=== PATIENT | female | born 1940 | race Caucasian/White ===

== ENCOUNTER 2017-07-16 09:54 | Outpatient (CLI) | payer MEDICARE ==
--- NOTE | 2017-07-16 10:48 | RAD ---
TWO VIEWS CHEST: Comparison: 06-26-13 from [facility] History: Dyspnea. Coughing up blood. FINDINGS: Two views of the chest shows normal sized cardiomediastinal silhouette. There is an opacity in the l eft lung base obscuring the left hemidiaphragm. Hyperexpansion of the lungs is seen consistent with COPD. IMPRESSION: 1. Left lower lobe pneumonia. Alternatively, this could represent atelectasis. 2. COPD. POS: [facility]
== END 2017-07-16 09:55 | disposition home or self-care (01) ==
LOC: RAD 09:54
PROVIDERS: ATTEND Internal Medicine Critical Care Medicine
DX: R06.00 Dyspnea, unspecified (principal); J18.9 Pneumonia, unspecified organism; J44.9 Chronic obstructive pulmonary disease, unspecified
CPT/HCPCS: 71020

== ENCOUNTER 2017-09-17 10:30 | Outpatient (CLI) | payer MEDICARE | END 2017-09-17 10:31 | disposition home or self-care (01) | LOC: BICMAMMO 10:30 | PROVIDERS: ATTEND Internal Medicine | DX: Z12.31 Encounter for screening mammogram for malignant neoplasm of breast (principal); Z80.3 Family history of malignant neoplasm of breast | CPT/HCPCS: 77063; G0202; 77067 ==

== ENCOUNTER 2017-11-12 13:03 | Outpatient (CLI) | payer MEDICARE | END 2017-11-12 13:04 | disposition home or self-care (01) | LOC: RAD 13:03 | PROVIDERS: ATTEND Internal Medicine Critical Care Medicine | DX: R06.00 Dyspnea, unspecified (principal) | CPT/HCPCS: 71046 ==

== ENCOUNTER 2018-01-28 14:31 | Outpatient (CLI) | payer MEDICARE | END 2018-01-28 14:32 | disposition home or self-care (01) | LOC: BICMAMMO 14:31 | PROVIDERS: ATTEND Internal Medicine | DX: M81.0 Age-related osteoporosis without current pathological fracture (principal); M85.88 Other specified disorders of bone density and structure, other site | CPT/HCPCS: 77080 ==

== ENCOUNTER 2018-04-01 12:21 | Emergency (ER) | payer MEDICARE ==
[~2018-04-01 12:21] MED LIST: ISOVUE-370 76%-LOCM 1 ML ONE
[2018-04-01 13:09] LABS: #Eosinphils 0.1 thou/uL (0.0-0.7); #Lymphocytes 1.2 thou/uL (1.20-3.40); #Monocytes 0.2 thou/uL (0.11-0.59); #Neutrophils 6.3 thou/uL (1.40-6.50); %Basophils 0.3 % (0.0-1.0); %Eosinophils 0.6 % (0.0-10.0); %Lymphocytes 15.3 % (21.0-51.0); %Neutrophils 80.7 % (42.0-75.0); Hemoglobin 15.4 g/dL (12.0-16.0); Mean Corpuscular HGB CONC 32.8 g/dL (32.0-36.0); Mean Corpuscular Hemoglobin 29.8 pg (27.0-31.0); Mean Corpuscular Volume 90.9 fL (78.0-98.0); Mean Platelet Volume 7.8 fL (7.4-10.4); Platelet Count 204 thou/uL (130-400); RBC Distribution Width 13.6 % (11.5-14.5); Red Blood Cell (RBC) Count 5.18 mill/uL (4.20-5.40); White Blood Cell (WBC) Count 7.7 thou/uL (4.8-10.8)
[2018-04-01] MEDS ORDERED: Promethazine HCl 25 MG/ML VIAL ONE (13:09)
[2018-04-01 13:29] LABS: ALT (SGPT) 17 U/L (8-55); AST (SGOT) 30 U/L (5-34); Albumin 4.1 g/dL (3.4-4.8); Alkaline Phosphatase 91 U/L (40-150); Anion Gap 13 mmol/L (10-20); BUN (Urea Nitrogen) 17 mg/dL (9.8-20.1); Bilirubin, Total 0.9 mg/dL (0.2-1.2); Calc. Creatinine Clearance 0 mL/min (70-130); Calcium 9.7 mg/dL (7.8-10.44); Carbon Dioxide 23 mmol/L (23-31); Chloride 103 mmol/L (98-107); Estimated GFR-MDRD 59; Globulin 4.6 g/dL (2.4-3.5); Glucose 95 mg/dL (83-110); Lipase 37 U/L (8-78); Potassium 4.2 mmol/L (3.5-5.1); Protein, Total 8.7 g/dL (6.0-8.3); Sodium 135 mmol/L (136-145)
--- NOTE | 2018-04-01 13:29 | RAD ---
TWO VIEWS ABDOMEN AND UPRIGHT VIEW OF THE CHEST: COMPARISON: chest x-ray from 11/12/17 from [facility] HISTORY: Abdominal pain. History of bowel obstruction in the past. FINDINGS: Supine and upright views of the abdomen and upright view of the chest show a nonspecific, nonobstruct ed bowel gas pattern. Air is seen throughout the colon to the level of the rectum. A small amount o f stool is seen in the rectum. Anastomotic staple lines are seen in the pelvis from prior bowel surg [place]. No free air or air fluid levels are seen on upright examination. There is hyperexpansion of the lungs consistent with COPD. There is a 1.1 cm nodule projecting over the right upper lobe. This was not seen on the prior chest x-ray from 11/12/17 from [facility]. The patient has bilateral breast implants with nipple shadows projecting symmetrically ov er both sides of the chest. IMPRESSION: 1. No evidence of bowel obstruction. 2. Right upper lobe nodule. This was not seen on prior chest x-ray. A CT of the chest is recommend ed for further evaluation. POS: [facility]
--- NOTE | 2018-04-01 15:05 | CT ---
CT ABDOMEN AND PELVIS WITH IV CONTRAST: HISTORY: Inability to pass stool. Abdominal pain. Nausea. FINDINGS: Absence of oral contrast reduces the sensitivity of the exam for evaluation of bowel. The lung bases are clear. No free air, free fluid, or lymphadenopathy is seen in the abdomen or pelv is. The patient is post appendectomy and hysterectomy. No calcified gallstones are seen. The liver, spleen, pancreas, adrenal glands, and right kidney are normal. Small, low density lesions in the left kidney are likely cysts. There are vascular calcifications without evidence of aneurysmal dilatation of the abdominal aorta. There are degenerative changes present in the spine. A small hiatal hernia is present. There is sig moid diverticulosis. There is mild pericolonic inflammatory change in the left lower quadrant. The small bowel loops are not abnormally dilated. There is fecal material predominantly in the transvers e colon. IMPRESSION: 1. Small hiatal hernia. 2. Left renal cyst. 3. Sigmoid diverticulosis. 4. Probable diverticulitis in the left lower quadrant. 5. No evidence of high grade small bowel obstruction. POS: [facility]
[2018-04-01] MEDS ORDERED: metroNIDAZOLE 500 MG/100 ML BAG ONE (15:39)
== END 2018-04-01 19:00 | disposition home or self-care (01) ==
LOC: ERS 12:21
DX: K57.32 Diverticulitis of large intestine without perforation or abscess without bleeding (principal); K57.30 Diverticulosis of large intestine without perforation or abscess without bleeding; E78.5 Hyperlipidemia, unspecified; J44.9 Chronic obstructive pulmonary disease, unspecified; Z79.899 Other long term (current) drug therapy
CPT/HCPCS: 74022; 74177; 80053; 83690; 85025; 96361; 96365; 96366; 96367; 96375; J1956; J2270; J2550

== ENCOUNTER 2018-08-28 12:52 | Outpatient (CLI) | payer MEDICARE ==
--- NOTE | 2018-08-28 14:15 | RAD ---
TWO VIEWS OF THE CHEST: Comparison: 07-16-17 History: COPD. Dyspnea FINDINGS: Two views of the chest shows hyperexpansion of the lungs consistent with COPD. Patient has bilateral breast implants. Nodular opacity projecting over the right chest wall is stable and likely represents a nipple shadow. No consolidation or pleural effusion are seen. IMPRESSION: 1. No evidence of acute cardiopulmonary disease. 2. COPD. POS: [facility]
== END 2018-08-28 12:53 | disposition home or self-care (01) ==
LOC: RAD 12:52
PROVIDERS: ATTEND Internal Medicine Critical Care Medicine
DX: R06.00 Dyspnea, unspecified (principal); J44.9 Chronic obstructive pulmonary disease, unspecified
CPT/HCPCS: 71046

== ENCOUNTER 2019-02-06 14:47 | Outpatient (CLI) | payer MEDICARE ==
--- NOTE | 2019-02-06 15:38 | MMO ---
Bilateral MAMMO Bilat Screen [facility]. CLINICAL HISTORY: Patient is 78 years old and is seen for screening. The patient has the following family history of breast cancer: maternal aunt, at age 54. The patient has no personal history of cancer. The patient has a history of bilateral Implants in 2006 - benign, bilateral Implants in 1979 - benign and left Excisional Biopsy in at age 18 - benign. VIEWS: The views performed were: bilateral craniocaudal; bilateral mediolateral oblique; and bilateral Implant displaced with tomosynthesis. FILMS COMPARED: The present examination has been compared to prior imaging studies performed at [facility] on 08/18/2015, 09/11/2016 and 09/17/2017, and at [facility] on 11/04/2006 and 03/22/2008. MAMMOGRAM FINDINGS: There are scattered fibroglandular densities. There are stable calcified implants seen in both breasts. There are no suspicious masses, suspicious calcifications, or new areas of architectural distortion. IMPRESSION: THERE IS NO MAMMOGRAPHIC EVIDENCE OF MALIGNANCY. A ROUTINE FOLLOW-UP MAMMOGRAM IN 1 YEAR IS RECOMMENDED. THE RESULTS OF THIS EXAM WERE SENT TO THE PATIENT. ACR BI-RADS Category 2 - Benign finding MAMMOGRAPHY NOTE: 1. A negative mammogram report should not delay a biopsy if a dominant of clinically suspicious mass is present. 2. Approximately 10% to 15% of breast cancers are not detected by mammography. 3. Adenosis and dense breasts may obscure an underlying neoplasm.
== END 2019-02-06 14:48 | disposition home or self-care (01) ==
LOC: BICMAMMO 14:47
PROVIDERS: ATTEND Internal Medicine
DX: Z12.31 Encounter for screening mammogram for malignant neoplasm of breast (principal); Z85.3 Personal history of malignant neoplasm of breast
CPT/HCPCS: 77063; 77067

== ENCOUNTER 2019-03-03 10:20 | Outpatient (CLI) | payer MEDICARE ==
--- NOTE | 2019-03-03 11:05 | BD ---
EXAM: DEXA bone density examination HISTORY: Osteoporosis screening COMPARISON: January 28, 2018 and September 11, 2016 FINDINGS: L1--bone mineral density 0.758 g/sq cm; T score -2.1. Z score 0.1 L2--bone mineral density 0.837 g/sq cm; T score -1.7; Z score 0.8 L3--bone mineral density 0.876 g/sq cm; T score -1.9; Z score 0.7 L4--bone mineral density 0.951 g/sq cm; T score -1.0, Z score 1.7 Total L1-L4--bone mineral density 0.869 g/sq cm; T score -1.6, Z score 0.9 Left femoral neck--bone mineral density0.61; T score -2.1, Z score 0.1 Total proximal left femur--bone mineral density 0.746; T score -1.6, Z score 0.3 IMPRESSION: Based on the WHO criteria, the patient's bone mineral density is consideredOsteopenic. T he patient is at moderate risk for fracture. The patient's bone mineral density is stable to the most recent comparison dated January 28, 2018.
== END 2019-03-03 10:21 | disposition home or self-care (01) ==
LOC: BICMAMMO 10:20
PROVIDERS: ATTEND Internal Medicine Rheumatology
DX: M81.0 Age-related osteoporosis without current pathological fracture (principal)
CPT/HCPCS: 77080

== ENCOUNTER 2019-09-10 13:22 | Outpatient (CLI) | payer MEDICARE ==
--- NOTE | 2019-09-10 15:21 | MRI ---
MRI BRAIN AND INTERNAL AUDITORY CANALS WITH AND WITHOUT CONTRAST: 09/10/2019 HISTORY: A 78-year-old female. The history provided in the requisition is H53.2, diplopia. However, upon spe aking with Dr. Souza (and also because of the patient's statement to the registered radiologic technologist), there is g reater concern for dizziness than the diplopia. Therefore an IAC protocol was performed rather than a n orbits protocol. TECHNIQUE: Multiple sequences obtained in axial, sagittal, and coronal planes; both whole brain images and thin slices through the IAC's, pre and post IV injection of gadolinium-based contrast agent: MultiHance 11 mL. FINDINGS: The ventricles are normal in size and configuration. There is no restricted diffusion, abnormal intr aaxial enhancement, mass, midline shift or any other mass effect, recent intraaxial hemorrhage, or ex traaxial fluid collection. There are multiple small focal T2 hyperintensities in the cerebral white m atter consistent with mild chronic ischemic white matter changes due to mild microvascular atheroscle rosis. Similar such tiny lesions are also present in the dana, which are consistent with mild chronic ischemic white matter changes and/or tiny old lacunar infarctions. There is no abnormal enhancement, mass, or morphologic abnormality, involving the cerebellopontine an gles, 7th-8th nerve complexes, internal auditory canals, cochleae, vestibules, vestibular aqueducts, or semicircular canals. IMPRESSION: 1. Mild chronic ischemic white matter changes, in the dana and cerebrum. 2. Otherwise negative. jnr POS: [facility]
== END 2019-09-10 13:23 | disposition home or self-care (01) ==
LOC: BICMRI 13:22
PROVIDERS: ATTEND Student in an Organized Health Care Education/Training Program
DX: H53.2 Diplopia (principal)
CPT/HCPCS: 70553; 82565

== ENCOUNTER 2020-03-08 14:17 | Outpatient (CLI) | payer MEDICARE ==
--- NOTE | 2020-03-08 14:53 | MMO ---
Bilateral MAMMO Bilat Screen [facility]. CLINICAL HISTORY: Patient is 79 years old and is seen for screening. The patient has the following family history of breast cancer: maternal aunt, at age 54. The patient has no personal history of cancer. The patient has a history of bilateral Implants in 2006 - benign, bilateral Implants in 1979 - benign and left Excisional Biopsy in at age 18 - benign. VIEWS: The views performed were: bilateral craniocaudal; bilateral craniocaudal with tomosynthesis; bilateral mediolateral oblique; bilateral mediolateral oblique with tomosynthesis; and bilateral Implant displaced with tomosynthesis. FILMS COMPARED: The present examination has been compared to prior imaging studies performed at [facility] on 08/18/2015, 09/11/2016, 09/17/2017 and 02/06/2019. This study has been interpreted with the assistance of computer-aided detection. MAMMOGRAM FINDINGS: There are scattered fibroglandular densities. There are stable benign appearing calcifications seen in both breasts. There are also vascular calcifications. There are no suspicious masses, suspicious calcifications, or new areas of architectural distortion. IMPRESSION: THERE IS NO MAMMOGRAPHIC EVIDENCE OF MALIGNANCY. A ROUTINE FOLLOW-UP MAMMOGRAM IN 1 YEAR IS RECOMMENDED. THE RESULTS OF THIS EXAM WERE SENT TO THE PATIENT. ACR BI-RADS Category 2 - Benign finding MAMMOGRAPHY NOTE: 1. A negative mammogram report should not delay a biopsy if a dominant of clinically suspicious mass is present. 2. Approximately 10% to 15% of breast cancers are not detected by mammography. 3. Adenosis and dense breasts may obscure an underlying neoplasm. Reported by: MARIA A ELISE MD Electonically Signed: [id number]
--- NOTE | 2020-03-08 18:42 | BD ---
Exam: DEXA Bone Density 03/08/20 HISTORY: Osteoporosis. Postmenopausal. FINDINGS: Lumbar Spine: BMD (g/cm2) T-SCORE L1 0.700 -2.6 L2 0.786 -2.2 L3 0.864 -2.0 L4 0.932 -1.2 L1-L4 0.837 -1.9 Evidence for osteopenia with increased risk for fracture. Bone mineral density has decreased approxim ately 4% from the prior 03/03/19 study. Left hip Femoral Neck: 0.619 -2.1 Total Femur: 0.778 -1.3 Evidence for osteopenia with increased risk for fracture. Bone mineral density has increased approxim ately 45 from the prior study. FRAX score: Major osteoporotic fracture: 18%. Hip fracture: 5.9%. POS: [facility]
== END 2020-03-08 14:18 | disposition home or self-care (01) ==
LOC: BICMAMMO 14:17
PROVIDERS: ATTEND Internal Medicine
DX: Z12.31 Encounter for screening mammogram for malignant neoplasm of breast (principal); Z13.820 Encounter for screening for osteoporosis; N95.8 Other specified menopausal and perimenopausal disorders; M81.0 Age-related osteoporosis without current pathological fracture; M85.852 Other specified disorders of bone density and structure, left thigh; Z98.82 Breast implant status; Z91.89 Other specified personal risk factors, not elsewhere classified; Z80.3 Family history of malignant neoplasm of breast
CPT/HCPCS: 77063; 77067; 77080

== ENCOUNTER 2020-03-21 08:33 | Outpatient (CLI) | payer MEDICARE ==
--- NOTE | 2020-03-21 08:52 | ULT ---
ULTRASOUND RETROPERITONEUM LIMITED: (ABDOMINAL AORTA) DATE: 03/21/2020 HISTORY: 79-year-old female for abdominal aortic aneurysm screening study FINDINGS: The caliber of the entire abdominal aorta is within normal limits. There is extensive atherosclerotic plaque throughout. IMPRESSION: 1. No abdominal aortic aneurysm. 2. Atherosclerosis of abdominal aorta
== END 2020-03-21 08:34 | disposition home or self-care (01) ==
LOC: BICULT 08:33
PROVIDERS: ATTEND Internal Medicine
DX: Z13.6 Encounter for screening for cardiovascular disorders (principal); I70.0 Atherosclerosis of aorta
CPT/HCPCS: 76775

== ENCOUNTER 2020-12-05 23:43 | Inpatient (IN) | payer MEDICARE ==
[~2020-12-05 23:43] MED LIST changes: -ISOVUE-370 76%-LOCM 1 ML ONE; +Iopamidol-370 76% 500 ML 1 ML ONE
[2020-12-06] MEDS ORDERED: Ondansetron PF 4 MG/2 ML Vial ONE ×2 (00:02→09:25)
[2020-12-06] MEDS ORDERED: Morphine 4 MG/ML VIAL ONE (00:02)
[2020-12-06 00:20] LABS: #Eosinphils 0.1 thou/uL (0.0-0.7); #Lymphocytes 1.4 thou/uL (1.20-3.40); #Monocytes 0.4 thou/uL (0.11-0.59); #Neutrophils 3.5 thou/uL (1.40-6.50); %Basophils 0.7 % (0.0-1.0); %Eosinophils 1.4 % (0.0-10.0); %Lymphocytes 26.1 % (21.0-51.0); %Monocytes 8.1 % (0.0-10.0); %Neutrophils 63.7 % (42.0-75.0); Hemoglobin 13.6 g/dL (12.0-16.0); Mean Corpuscular HGB CONC 32.6 g/dL (32.0-36.0); Mean Corpuscular Hemoglobin 29.9 pg (27.0-31.0); Mean Corpuscular Volume 91.8 fL (78.0-98.0); Mean Platelet Volume 7.6 fL (7.4-10.4); Platelet Count 229 thou/uL (130-400); RBC Distribution Width 13.2 % (11.5-14.5); Red Blood Cell (RBC) Count 4.54 mill/uL (4.20-5.40); White Blood Cell (WBC) Count 5.4 thou/uL (4.8-10.8)
[2020-12-06 00:34] LABS: ALT (SGPT) 14 U/L (8-55); AST (SGOT) 18 U/L (5-34); Albumin 3.9 g/dL (3.4-4.8); Alkaline Phosphatase 64 U/L (40-110); Anion Gap 13 mmol/L (10-20); BUN (Urea Nitrogen) 14 mg/dL (9.8-20.1); Bilirubin, Total 0.3 mg/dL (0.2-1.2); Calc. Creatinine Clearance 0 mL/min (70-130); Calcium 9.3 mg/dL (7.8-10.44); Carbon Dioxide 25 mmol/L (23-31); Chloride 101 mmol/L (98-107); Globulin 5.6 g/dL (2.4-3.5); Glucose 97 mg/dL (83-110); Lipase 92 U/L (8-78); Potassium 4.3 mmol/L (3.5-5.1); Protein, Total 9.5 g/dL (5.8-8.1); Sodium 135 mmol/L (136-145)
[2020-12-06] MEDS ORDERED: Morphine 4 MG/ML VIAL SLOW IVP PRN ×2 (02:49→06:59)
[2020-12-06] MEDS ORDERED: Ondansetron PF 4 MG/2 ML Vial IVP PRN ×2 (03:00→13:35)
[2020-12-06] MEDS ORDERED: Ondansetron ODT 4 MG TAB SL PRN (03:00)
[2020-12-06 03:29] VITALS: BMI 23.4
[2020-12-06] MEDS: Sodium Chloride 0.9% 1,000 ML IV SCH ×2 (03:35→11:26)
[2020-12-06] MEDS ORDERED: Succinylcholine 200 MG/10 ml SYRINGE FS ONE (09:25)
[2020-12-06] MEDS ORDERED: Rocuronium Bromide 10 MG/ML (10ML VIAL) ONE (09:25)
[2020-12-06] MEDS ORDERED: Esmolol 100 MG/10 ML VIAL ONE (09:25)
[2020-12-06] MEDS ORDERED: ePHEDrine 50 MG/ML VIAL ONE (09:25)
[2020-12-06] MEDS ORDERED: PHENYLEPHRINE-NS 100 MCG/ML 10 ML SYRINGE ONE (09:25)
[2020-12-06] MEDS ORDERED: Glycopyrrolate 0.2 MG/ML 5 ML SYRINGE ONE (09:25)
[2020-12-06] MEDS ORDERED: Dexamethasone 20 MG/5 ML VIAL ONE (09:25)
[2020-12-06] MEDS ORDERED: PROPOFOL 200 MG/20 ML VIAL ONE (09:25)
[2020-12-06] MEDS ORDERED: Lidocaine 1% PF 5 ML VIAL ONE (09:25)
[2020-12-06] MEDS ORDERED: Fentanyl 100 MCG/2 ML VIAL ONE ×3 (11:09→13:55)
[2020-12-06] MEDS ORDERED: cefOXitin Sodium/Dextrose 2 GM/50 ML BAG ONE (11:31)
[2020-12-06 11:39] LABS: SARS-CoV-2 PCR by NAA Not Detected (NotDetected)
[2020-12-06] MEDS ORDERED: Promethazine HCl 25 MG/ML VIAL SLOW IVP PRN (13:12)
[2020-12-06] MEDS ORDERED: Promethazine HCl 25 MG/ML VIAL IM PRN ×3 (13:12→13:44)
[2020-12-06] MEDS ORDERED: Ondansetron HCl/PF 4 MG/2 ML Vial IVP PRN (13:12)
[2020-12-06] MEDS ORDERED: hydrALAZINE 20 MG/ML VIAL SLOW IVP PRN (13:35)
[2020-12-06] MEDS ORDERED: diphenhydrAMINE 50 MG/ML VIAL IM PRN (13:44)
[2020-12-06] MEDS ORDERED: diphenhydrAMINE 25 MG CAP PO PRN (13:44)
[2020-12-06] MEDS ORDERED: Naloxone HCl 0.4 mg/ml Vial IV PRN (13:44)
[2020-12-06] MEDS ORDERED: diphenhydrAMINE 50 MG/ML VIAL IVP PRN (13:44)
[2020-12-06] MEDS ORDERED: Zolpidem Tartrate 5 MG TAB PO PRN (13:44)
[2020-12-06] MEDS ORDERED: fentaNYL Citrate/PF 2,000 MCG in Sodium Chloride 0.9% 60 ML IV PRN (13:44)
[2020-12-06] MEDS ORDERED: Communication Order-Pharmacy FS SCH (13:45)
[2020-12-06] MEDS ORDERED: Promethazine HCl 25 MG/ML VIAL ONE (13:59)
[2020-12-06] MEDS: D5 1/2 NS w/20 mEq KCL 1,000 ML IV SCH (17:49)
[2020-12-06] MEDS: Famotidine 20 MG TAB PO SCH (19:45)
[2020-12-06] MEDS: cefOXitin Sodium/Dextrose,Iso 1 GM in Premix Bag 1 BAG IVPB SCH (20:41)
[2020-12-06] MEDS: Enoxaparin Sodium 40 MG/0.4 ML SYRINGE SC SCH (20:41)
[2020-12-06] MEDS: Famotidine/PF 20 mg/2ml Vial SLOW IVP SCH (20:42)
[2020-12-07] MEDS: D5 1/2 NS w/20 mEq KCL 1,000 ML IV SCH ×3 (03:09→14:02)
[2020-12-07] MEDS: cefOXitin Sodium/Dextrose,Iso 1 GM in Premix Bag 1 BAG IVPB SCH (03:10)
[2020-12-07 05:55] LABS: #Lymphocytes 0.7 thou/uL (1.20-3.40); #Monocytes 0.8 thou/uL (0.11-0.59); #Neutrophils 9.5 thou/uL (1.40-6.50); %Lymphocytes 6.4 % (21.0-51.0); %Monocytes 7.1 % (0.0-10.0); %Neutrophils 86.4 % (42.0-75.0); Hemoglobin 12.9 g/dL (12.0-16.0); Mean Corpuscular HGB CONC 32.2 g/dL (32.0-36.0); Mean Corpuscular Hemoglobin 29.8 pg (27.0-31.0); Mean Corpuscular Volume 92.7 fL (78.0-98.0); Mean Platelet Volume 7.8 fL (7.4-10.4); Platelet Count 191 thou/uL (130-400); RBC Distribution Width 13.1 % (11.5-14.5); Red Blood Cell (RBC) Count 4.34 mill/uL (4.20-5.40)
[2020-12-07 06:20] LABS: Anion Gap 12 mmol/L (10-20); BUN (Urea Nitrogen) 7 mg/dL (9.8-20.1); Calc. Creatinine Clearance 54 mL/min (70-130); Carbon Dioxide 20 mmol/L (23-31); Chloride 103 mmol/L (98-107); Glucose 149 mg/dL (83-110); Potassium 4.3 mmol/L (3.5-5.1); Sodium 131 mmol/L (136-145)
[2020-12-07] MEDS: Famotidine 20 MG TAB PO SCH ×2 (07:25→20:59)
[2020-12-07] MEDS: Acetaminophen 325 MG TAB PO SCH ×3 (09:32→21:28)
[2020-12-07] MEDS: Famotidine/PF 20 mg/2ml Vial SLOW IVP SCH ×2 (09:33→20:59)
[2020-12-07] MEDS: Enoxaparin Sodium 40 MG/0.4 ML SYRINGE SC SCH (20:59)
[2020-12-08] MEDS: D5 1/2 NS w/20 mEq KCL 1,000 ML IV SCH (02:35)
[2020-12-08] MEDS: Acetaminophen 325 MG TAB PO SCH ×4 (04:47→21:45)
[2020-12-08] MEDS: Famotidine/PF 20 mg/2ml Vial SLOW IVP SCH ×2 (08:11→20:22)
[2020-12-08] MEDS: Famotidine 20 MG TAB PO SCH ×2 (08:13→20:22)
[2020-12-08] MEDS ORDERED: D5 1/2 NS w/20 mEq KCL 1,000 ML IV SCH ×2 (08:49→20:30)
[2020-12-08] MEDS: Enoxaparin Sodium 40 MG/0.4 ML SYRINGE SC SCH (20:21)
[2020-12-09] MEDS: Acetaminophen 325 MG TAB PO SCH (04:21)
[2020-12-09] MEDS: Famotidine 20 MG TAB PO SCH ×2 (08:30→20:36)
[2020-12-09] MEDS: Famotidine/PF 20 mg/2ml Vial SLOW IVP SCH ×2 (08:31→20:42)
[2020-12-09] MEDS: Fentanyl 100 MCG/2 ML VIAL SLOW IVP PRN ×2 (15:49→19:53)
[2020-12-09] MEDS: Ondansetron PF 4 MG/2 ML Vial IVP PRN (19:53)
[2020-12-09] MEDS: Enoxaparin Sodium 40 MG/0.4 ML SYRINGE SC SCH (20:42)
[2020-12-10] MEDS: Famotidine/PF 20 mg/2ml Vial SLOW IVP SCH ×2 (08:09→21:15)
[2020-12-10] MEDS: Famotidine 20 MG TAB PO SCH ×2 (09:06→21:14)
[2020-12-10] MEDS: Ondansetron PF 4 MG/2 ML Vial IVP PRN ×2 (09:41→21:14)
[2020-12-10] MEDS: Acetaminophen 325 MG TAB PO PRN (13:12)
[2020-12-10] MEDS: HYDROcodone/Acetaminophen 7.5/325 mg Tablet PO PRN (21:14)
[2020-12-10] MEDS: Enoxaparin Sodium 40 MG/0.4 ML SYRINGE SC SCH (21:16)
[2020-12-11] MEDS: Famotidine/PF 20 mg/2ml Vial SLOW IVP SCH ×2 (08:01→20:09)
[2020-12-11] MEDS: HYDROcodone/Acetaminophen 7.5/325 mg Tablet PO PRN (08:34)
[2020-12-11] MEDS: Famotidine 20 MG TAB PO SCH ×2 (08:34→20:40)
[2020-12-11] MEDS ORDERED: Polyethylene Glycol 3350 17 GM Packet PO SCH (11:30)
[2020-12-11] MEDS: Enoxaparin Sodium 40 MG/0.4 ML SYRINGE SC SCH (20:40)
[2020-12-12] MEDS: Acetaminophen 325 MG TAB PO PRN (04:03)
[2020-12-12] MEDS ORDERED: Polyethylene Glycol 3350 17 GM Packet PO SCH (09:00)
[2020-12-12] MEDS: Famotidine/PF 20 mg/2ml Vial SLOW IVP SCH (09:13)
[2020-12-12] MEDS: Famotidine 20 MG TAB PO SCH (09:13)
[2020-12-12] MEDS ORDERED: Milk Of Magnesia 30 ML UDCUP PO SCH (09:15)
[2020-12-12 18:54] VITALS: BP 103/55; TEMP 97.9
== END 2020-12-12 18:45 | disposition home or self-care (01) | DRG 329 ==
LOC: ERS 23:43 → T4-A 12-06 01:36
PROVIDERS: ADMIT Surgery; ATTEND Surgery
PROC: 0DBF0ZZ Excision of Right Large Intestine, Open Approach (ICD-10-PCS; principal; 2020-12-06)
DX: K56.2 Volvulus (principal); K65.9 Peritonitis, unspecified; E87.1 Hypo-osmolality and hyponatremia; Z20.822 Contact with and (suspected) exposure to COVID-19; E78.5 Hyperlipidemia, unspecified; J44.9 Chronic obstructive pulmonary disease, unspecified; F32.9 Major depressive disorder, single episode, unspecified; K59.09 Other constipation; T40.415A Adverse effect of fentanyl or fentanyl analogs, initial encounter; R41.0 Disorientation, unspecified; D72.829 Elevated white blood cell count, unspecified; R73.9 Hyperglycemia, unspecified; Z90.49 Acquired absence of other specified parts of digestive tract; Z90.710 Acquired absence of both cervix and uterus; Z87.891 Personal history of nicotine dependence; Z79.899 Other long term (current) drug therapy; Z79.51 Long term (current) use of inhaled steroids
CPT/HCPCS: 36415; 36416; 71045; 74177; 80048; 80053; 83690; 84484; 85025; 87635; 88307; 93005; 96374; 96375; J0694; J1100; J1200; J1650; J2270; J2405; J2550; J2704; J3010; J3480; J3490; Q9967; S0028; U0003; U0005

== ENCOUNTER 2021-01-03 14:46 | Outpatient (CLI) | payer MEDICARE | END 2021-01-03 14:47 | disposition home or self-care (01) | LOC: RAD 14:46 | PROVIDERS: ATTEND Surgery | DX: K56.2 Volvulus (principal) | CPT/HCPCS: 36415; 74019; 80048; 85025 ==

== ENCOUNTER 2021-03-14 15:16 | Outpatient (CLI) | payer MEDICARE | END 2021-03-14 15:17 | disposition home or self-care (01) | LOC: BICMAMMO 15:16 | PROVIDERS: ATTEND Family Medicine | DX: Z12.31 Encounter for screening mammogram for malignant neoplasm of breast (principal); Z80.3 Family history of malignant neoplasm of breast; Z98.82 Breast implant status; Z91.89 Other specified personal risk factors, not elsewhere classified | CPT/HCPCS: 77063; 77067 ==

== ENCOUNTER 2021-03-15 11:45 | Observation (INO) | payer MEDICARE ==
[2021-03-15 12:16] LABS: #Lymphocytes 1.4 thou/uL (1.20-3.40); #Monocytes 0.4 thou/uL (0.11-0.59); #Neutrophils 3.4 thou/uL (1.40-6.50); %Basophils 0.2 % (0.0-1.0); %Eosinophils 0.6 % (0.0-10.0); %Lymphocytes 27.5 % (21.0-51.0); %Monocytes 6.8 % (0.0-10.0); %Neutrophils 64.9 % (42.0-75.0); Hemoglobin 13.2 g/dL (12.0-16.0); Mean Corpuscular HGB CONC 32.2 g/dL (32.0-36.0); Mean Corpuscular Hemoglobin 29.2 pg (27.0-31.0); Mean Corpuscular Volume 90.7 fL (78.0-98.0); Mean Platelet Volume 7.7 fL (7.4-10.4); Platelet Count 222 thou/uL (130-400); RBC Distribution Width 13.1 % (11.5-14.5); Red Blood Cell (RBC) Count 4.52 mill/uL (4.20-5.40); White Blood Cell (WBC) Count 5.2 thou/uL (4.8-10.8)
[2021-03-15 12:36] LABS: ALT (SGPT) 14 U/L (8-55); AST (SGOT) 23 U/L (5-34); Albumin 4.1 g/dL (3.4-4.8); Alkaline Phosphatase 66 U/L (40-110); Anion Gap 16 mmol/L (10-20); BUN (Urea Nitrogen) 11 mg/dL (9.8-20.1); Bilirubin, Total 0.4 mg/dL (0.2-1.2); CK (CPK) 43 U/L (29-168); Calc. Creatinine Clearance 0 mL/min (70-130); Calcium 9.5 mg/dL (7.8-10.44); Carbon Dioxide 21 mmol/L (23-31); Chloride 107 mmol/L (98-107); Globulin 3.6 g/dL (2.4-3.5); Glucose 99 mg/dL (83-110); Potassium 3.8 mmol/L (3.5-5.1); Protein, Total 7.7 g/dL (5.8-8.1); Sodium 140 mmol/L (136-145)
[2021-03-15] MEDS ORDERED: Aspirin Chewable 81 MG TAB ONE (14:11)
[2021-03-15] MEDS ORDERED: Nitroglycerin 2% Ointment 1 INCH/1 GM Packet ONE (16:00)
[2021-03-15 17:43] LABS: Troponin I Less than 0.010 ng/mL (< 0.028)
[2021-03-15 19:53] LABS: Troponin I Less than 0.010 ng/mL (< 0.028)
[2021-03-15] MEDS ORDERED: Aspirin Chewable 81 MG TAB PO SCH (20:00)
[2021-03-15] MEDS ORDERED: Nitroglycerin 0.4 MG TAB (25 Tab Bottle) SL PRN (20:00)
[2021-03-15] MEDS ORDERED: Morphine 2 MG/ML VIAL SLOW IVP PRN (20:00)
[2021-03-15] MEDS ORDERED: Ondansetron PF 4 MG/2 ML Vial IVP PRN (20:02)
[2021-03-15] MEDS ORDERED: Promethazine HCl 12.5 MG in Sodium Chloride 0.9% 50 ML IVPB PRN (20:02)
[2021-03-15] MEDS ORDERED: Labetalol HCl 100 MG/20 ML VIAL SLOW IVP PRN (20:02)
[2021-03-15] MEDS ORDERED: ALPRAZolam 0.25 MG TAB PO PRN (20:02)
[2021-03-15] MEDS ORDERED: HYDROcodone/Acetaminophen 5/325 mg Tablet PO PRN (20:02)
[2021-03-15] MEDS ORDERED: Acetaminophen 325 MG TAB PO PRN (20:02)
[2021-03-15] MEDS ORDERED: hydrALAZINE 20 MG/ML VIAL SLOW IVP PRN (20:02)
[2021-03-15] MEDS ORDERED: Electrolyte Replacement Protocol 1 EACH FS SCH (20:15)
[2021-03-15] MEDS ORDERED: Amlodipine 5 MG TAB PO SCH (20:15)
[2021-03-15] MEDS ORDERED: Rosuvastatin 20 MG TAB PO SCH (21:00)
[2021-03-15] MEDS ORDERED: Famotidine 20 MG TAB ONE (22:00)
[2021-03-15] MEDS ORDERED: Amlodipine 5 MG TAB ONE (22:00)
[2021-03-16 00:45] LABS: SARS-CoV-2 NAA Rapid Test Not Detected (NotDetected)
[2021-03-16] MEDS ORDERED: Famotidine 20 MG TAB ONE (00:50)
[2021-03-16] MEDS ORDERED: Amlodipine 5 MG TAB ONE (00:50)
[2021-03-16] MEDS: Famotidine 20 MG TAB PO SCH ×2 (01:19→09:02)
[2021-03-16 05:42] LABS: #Eosinphils 0.1 thou/uL (0.0-0.7); #Lymphocytes 1.6 thou/uL (1.20-3.40); #Monocytes 0.5 thou/uL (0.11-0.59); #Neutrophils 2.4 thou/uL (1.40-6.50); %Eosinophils 1.4 % (0.0-10.0); %Lymphocytes 34.2 % (21.0-51.0); %Monocytes 10.7 % (0.0-10.0); %Neutrophils 52.8 % (42.0-75.0); Hemoglobin 12.1 g/dL (12.0-16.0); Mean Corpuscular HGB CONC 32.1 g/dL (32.0-36.0); Mean Corpuscular Volume 90.2 fL (78.0-98.0); Mean Platelet Volume 7.8 fL (7.4-10.4); Platelet Count 212 thou/uL (130-400); RBC Distribution Width 13.1 % (11.5-14.5); Red Blood Cell (RBC) Count 4.19 mill/uL (4.20-5.40); White Blood Cell (WBC) Count 4.6 thou/uL (4.8-10.8)
[2021-03-16 06:05] LABS: Anion Gap 10 mmol/L (10-20); BUN (Urea Nitrogen) 11 mg/dL (9.8-20.1); Calc. Creatinine Clearance 50 mL/min (70-130); Calcium 9.3 mg/dL (7.8-10.44); Carbon Dioxide 25 mmol/L (23-31); Cardiac Risk 2.4 (Less than 4.5); Chloride 110 mmol/L (98-107); Cholesterol 120 mg/dl (< 200 Desired); Glucose 90 mg/dL (83-110); HDL Cholesterol 51 mg/dL (>60 Neg Risk); LDL Cholesterol, Calculated 45 mg/dL; Magnesium 1.9 mg/dL (1.6-2.6); Potassium 3.7 mmol/L (3.5-5.1); Sodium 141 mmol/L (136-145); Triglycerides 119 mg/dL (Less than 150)
[2021-03-16] MEDS ORDERED: Magnesium 2 GM/50 ML BAG (IN WATER) ONE (06:26)
[2021-03-16] MEDS ORDERED: Magnesium 2 GM/50 ML 2 GM in Premix Bag 1 BAG IVPB SCH (06:30)
[2021-03-16] MEDS ORDERED: Mometasone 200 MCG/Formoterol 5 MCG 120 PUFF INHALER INH SCH (06:30)
[2021-03-16] MEDS ORDERED: Aspirin Chewable 81 MG TAB ONE (07:35)
[2021-03-16] MEDS: Mometasone 100 MCG/Formoterol 5 MCG 120 PUFF INHALER INH SCH ×2 (08:13→08:26)
[2021-03-16] MEDS: Ipratropium Bromide 2.5 ml Neb NEB SCH ×3 (08:13→14:24)
[2021-03-16] MEDS ORDERED: Enoxaparin Sodium 40 MG/0.4 ML SYRINGE ONE (08:52)
[2021-03-16] MEDS ORDERED: Amlodipine 5 MG TAB PO SCH (09:00)
[2021-03-16] MEDS ORDERED: Polyethylene Glycol 3350 17 GM Packet PO SCH (09:00)
[2021-03-16] MEDS ORDERED: Escitalopram Oxalate 20 mg Tablet PO SCH (09:00)
[2021-03-16] MEDS ORDERED: Enoxaparin Sodium 40 MG/0.4 ML SYRINGE SC SCH (09:00)
[2021-03-16] MEDS ORDERED: Regadenoson 0.4 MG/5 ML SYRINGE ONE (09:45)
[2021-03-16 14:39] VITALS: TEMP 98.3
[2021-03-16 14:41] VITALS: BMI 20.7
[2021-03-16 19:36] VITALS: BP 128/58
== END 2021-03-16 16:45 | disposition home or self-care (01) ==
LOC: ERS 11:45 → ERHOLD 17:11 → 2SW 03-16 13:27
PROVIDERS: ADMIT Internal Medicine; ATTEND Student in an Organized Health Care Education/Training Program
DX: R07.89 Other chest pain (principal); I10 Essential (primary) hypertension; J44.9 Chronic obstructive pulmonary disease, unspecified; E78.5 Hyperlipidemia, unspecified; M32.9 Systemic lupus erythematosus, unspecified; Z87.891 Personal history of nicotine dependence; Z79.82 Long term (current) use of aspirin; Z79.899 Other long term (current) drug therapy; Z90.49 Acquired absence of other specified parts of digestive tract; Z20.822 Contact with and (suspected) exposure to COVID-19
CPT/HCPCS: 71045; 78452; 80048; 80053; 80061; 82550; 83735; 84484 ×2; 85025 ×2; 93005; 93017; 94640 ×3; A9500; U0002; U0005; 36415; 96372; 96374; G0378; J1650; J2785; J3475

== ENCOUNTER 2021-04-21 09:56 | Outpatient (CLI) | payer MEDICARE ==
[~2021-04-21 09:56] MED LIST changes: +Iopamidol 370 76% 100 ML VIAL ONE; +Iopamidol 370 76% 50 ML VIAL FS ONE; -Iopamidol-370 76% 500 ML 1 ML ONE
== END 2021-04-21 09:57 | disposition home or self-care (01) ==
LOC: CT 09:56
PROVIDERS: ATTEND Physician Assistant Medical
DX: R10.9 Unspecified abdominal pain (principal); R11.2 Nausea with vomiting, unspecified; Z87.19 Personal history of other diseases of the digestive system; K57.92 Diverticulitis of intestine, part unspecified, without perforation or abscess without bleeding; N28.1 Cyst of kidney, acquired
CPT/HCPCS: 74177; 82565

== ENCOUNTER 2021-05-15 13:25 | Outpatient (CLI) | payer MEDICARE | END 2021-05-15 13:26 | disposition home or self-care (01) | LOC: BICMAMMO 13:25 | PROVIDERS: ATTEND Physician Assistant | DX: M81.0 Age-related osteoporosis without current pathological fracture (principal); M85.89 Other specified disorders of bone density and structure, multiple sites | CPT/HCPCS: 77080 ==

== ENCOUNTER 2021-06-27 15:06 | Outpatient (CLI) | payer MEDICARE | END 2021-06-27 15:07 | disposition home or self-care (01) | LOC: BICRAD 15:06 | PROVIDERS: ATTEND Internal Medicine Rheumatology | DX: M54.5 Low back pain (principal); M54.6 Pain in thoracic spine; M47.814 Spondylosis without myelopathy or radiculopathy, thoracic region; M47.816 Spondylosis without myelopathy or radiculopathy, lumbar region | CPT/HCPCS: 72072; 72100 ==

== ENCOUNTER 2022-05-10 15:08 | Outpatient (CLI) | payer MEDICARE | END 2022-05-10 15:09 | disposition home or self-care (01) | LOC: RAD 15:08 | PROVIDERS: ATTEND Internal Medicine Critical Care Medicine | DX: R06.00 Dyspnea, unspecified (principal) | CPT/HCPCS: 71046 ==

== ENCOUNTER 2022-05-30 13:03 | Outpatient (CLI) | payer MEDICARE | END 2022-05-30 13:04 | disposition home or self-care (01) | LOC: BICMAMMO 13:03 | PROVIDERS: ATTEND Family Medicine | DX: Z12.31 Encounter for screening mammogram for malignant neoplasm of breast (principal); Z13.820 Encounter for screening for osteoporosis; Z78.0 Asymptomatic menopausal state; M85.89 Other specified disorders of bone density and structure, multiple sites; Z80.3 Family history of malignant neoplasm of breast; Z91.89 Other specified personal risk factors, not elsewhere classified; Z98.82 Breast implant status | CPT/HCPCS: 77063; 77067; 77080 ==

== ENCOUNTER 2022-10-25 10:49 | Outpatient (CLI) | payer MEDICARE | END 2022-10-25 10:50 | disposition home or self-care (01) | LOC: MRI 10:49 | PROVIDERS: ATTEND Internal Medicine Rheumatology | DX: M54.6 Pain in thoracic spine (principal); M47.814 Spondylosis without myelopathy or radiculopathy, thoracic region; M46.04 Spinal enthesopathy, thoracic region | CPT/HCPCS: 72146 ==

== ENCOUNTER 2023-01-17 07:44 | Outpatient (CLI) | payer MEDICARE | END 2023-01-17 07:45 | disposition home or self-care (01) | LOC: CT 07:44 | PROVIDERS: ATTEND Physician Assistant Medical | DX: K58.0 Irritable bowel syndrome with diarrhea (principal); R11.2 Nausea with vomiting, unspecified; K57.30 Diverticulosis of large intestine without perforation or abscess without bleeding | CPT/HCPCS: 74177; 82565 ==

== ENCOUNTER 2023-07-24 15:32 | Emergency (ER) | payer MEDICARE ==
[~2023-07-24 15:32] MED LIST changes: -Iopamidol 370 76% 100 ML VIAL ONE; -Iopamidol 370 76% 50 ML VIAL FS ONE; +Iopamidol-370 76% 500 ML MDV (1 ML CHARGE) ONE
[2023-07-24] MEDS ORDERED: Morphine 4 MG/ML VIAL ONE (16:25)
[2023-07-24] MEDS ORDERED: Ondansetron PF 4 MG/2 ML Vial ONE (16:25)
[2023-07-24 16:39] LABS: #Monocytes 0.5 thou/uL (0.11-0.59); #Neutrophils 9.8 thou/uL (1.40-6.50); %Basophils 0.2 % (0.0-1.0); %Eosinophils 0.1 % (0.0-10.0); %Lymphocytes 9.1 % (21.0-51.0); %Monocytes 4.4 % (0.0-10.0); %Neutrophils 85.8 % (42.0-75.0); Hematocrit 45.8 % (36.0-47.0); Hemoglobin 14.7 g/dL (12.0-16.0); Mean Corpuscular HGB CONC 32.1 g/dL (32.0-36.0); Mean Corpuscular Hemoglobin 29.3 pg (27.0-31.0); Mean Corpuscular Volume 91.4 fl (78.0-98.0); Mean Platelet Volume 10.2 fL (7.4-10.4); Platelet Count 252 10x3/uL (130-400); RBC Distribution Width 14.7 % (11.5-14.5); Red Blood Cell (RBC) Count 5.01 mill/uL (4.20-5.40); White Blood Cell (WBC) Count 11.4 10x3/uL (4.8-10.8)
[2023-07-24 17:49] LABS: ALT (SGPT) 21 U/L (8-55); AST (SGOT) 27 U/L (5-34); Albumin 4.4 g/dL (3.4-4.8); Alkaline Phosphatase 72 U/L (40-110); Anion Gap 15 mmol/L (10-20); BUN (Urea Nitrogen) 17 mg/dL (9.8-20.1); Bilirubin, Total 0.5 mg/dL (0.2-1.2); Calc. Creatinine Clearance 0 mL/min (70-130); Calcium 9.8 mg/dL (7.8-10.44); Carbon Dioxide 24 mmol/L (23-31); Chloride 101 mmol/L (98-107); Estimated GFR 59; Globulin 3.8 g/dL (2.4-3.5); Glucose 110 mg/dL (83-110); Lipase 132 U/L (8-78); Potassium 3.9 mmol/L (3.5-5.1); Protein, Total 8.2 g/dL (5.8-8.1); Sodium 136 mmol/L (136-145)
[2023-07-24] MEDS ORDERED: Amoxicillin/Potassium Clav 875 MG TAB ONE (20:31)
== END 2023-07-24 21:15 | disposition home or self-care (01) ==
LOC: ERS 15:32
DX: K57.92 Diverticulitis of intestine, part unspecified, without perforation or abscess without bleeding (principal); K29.70 Gastritis, unspecified, without bleeding; E78.5 Hyperlipidemia, unspecified; Z87.891 Personal history of nicotine dependence; Z79.899 Other long term (current) drug therapy
CPT/HCPCS: 36415; 74177; 80053; 83605; 83690; 85025; 93005; 96361; 96374; 96375; J2270; J2405; Q9967

== ENCOUNTER 2023-09-12 10:28 | Outpatient (CLI) | payer MEDICARE | END 2023-09-12 10:29 | disposition home or self-care (01) | LOC: RAD 10:28 | PROVIDERS: ATTEND Internal Medicine Critical Care Medicine | DX: R06.00 Dyspnea, unspecified (principal) | CPT/HCPCS: 71046 ==

== ENCOUNTER 2023-10-11 08:17 | Outpatient (CLI) | payer MEDICARE ==
[2023-10-11] MEDS ORDERED: Magnevist 469MG/ML 20 ML VIAL ONE (12:47)
== END 2023-10-11 08:18 | disposition home or self-care (01) ==
LOC: MRI 08:17
PROVIDERS: ATTEND Physician Assistant Medical
DX: K86.89 Other specified diseases of pancreas (principal); R97.8 Other abnormal tumor markers
CPT/HCPCS: 74183

== ENCOUNTER 2023-11-12 14:13 | Outpatient (CLI) | payer MEDICARE | END 2023-11-12 14:14 | disposition home or self-care (01) | LOC: BICMAMMO 14:13 | PROVIDERS: ATTEND Family Medicine | DX: Z12.31 Encounter for screening mammogram for malignant neoplasm of breast (principal); M81.0 Age-related osteoporosis without current pathological fracture; M85.851 Other specified disorders of bone density and structure, right thigh; M85.852 Other specified disorders of bone density and structure, left thigh; Z80.3 Family history of malignant neoplasm of breast; Z98.82 Breast implant status; Z91.89 Other specified personal risk factors, not elsewhere classified | CPT/HCPCS: 77063; 77067; 77080 ==

== ENCOUNTER 2024-10-07 08:07 | Outpatient (CLI) | payer MEDICARE | END 2024-10-07 08:08 | disposition home or self-care (01) | LOC: RAD 08:07 | PROVIDERS: ATTEND Internal Medicine Critical Care Medicine | DX: R06.00 Dyspnea, unspecified (principal); J44.9 Chronic obstructive pulmonary disease, unspecified | CPT/HCPCS: 71046 ==

== ENCOUNTER 2025-04-27 10:15 | Outpatient (CLI) | payer MEDICARE | END 2025-04-27 10:16 | disposition home or self-care (01) | LOC: ULT 10:15 | PROVIDERS: ATTEND Internal Medicine Rheumatology | DX: R79.89 Other specified abnormal findings of blood chemistry (principal) | CPT/HCPCS: 76705 ==

== ENCOUNTER 2025-07-13 13:19 | Outpatient (CLI) | payer MEDICARE | END 2025-07-13 13:20 | disposition home or self-care (01) | LOC: RAD 13:19 | PROVIDERS: ATTEND Internal Medicine Critical Care Medicine | DX: R06.00 Dyspnea, unspecified (principal) | CPT/HCPCS: 71046 ==